=== PATIENT | female | born 1975 | race Caucasian/White ===

== ENCOUNTER 2023-09-09 15:21 | Inpatient (IN) | payer BC, SELFPAY ==
[2023-09-09 15:30] VITALS: BP 163/98; PULSE 108; RESP 18; TEMP 37; O2SAT 96; BMI 20.5
--- NOTE | 2023-09-09 15:33 | W.ED.PSYCHS ---
HPI - Psych General: Chief Complaint: Psychiatric Symptoms Stated Complaint: si Time Seen by Provider: 09/09/23 15:26 Source: patient Mode of arrival: ambulatory History of Present Illness: 47-year-old female presents to the emergency room stressed out tearful and anxious. The stated complaint from the advertising space clerk is suicidal ideation but she never expressed any suicidal ideation plans or thoughts to myself or any of the other medical staff. She is very tearful she cannot focus and basically just cannot function at all anymore is progressively been getting worse the last several days. Several months ago her and her begin a separation or proceeding towards divorce she is having difficult time managing with that she is not previously admitted for psychiatric illness. On initially talked to her she denied any medications but the doctor of pharmacy found that she has been prescribed bupropion fluoxetine and trazodone. She is awake and alert she denies trying to harm herself or any suicidal ideation or plans MD complaint: suicidal ideation and feels depressed Onset (ago): week(s) Duration: constant Relieving factors: none Exacerbating factors: none Associated psychiatric symptoms: depression Associated symptoms: Deny auditory hallucinations, visual hallucinations, delusions, homicidal ideation or suicidal ideation Review of Systems Const: Denies: fever(s) or chills Card: Denies: chest pain Resp: Denies: dyspnea GI: Denies: abdominal pain : Denies: dysuria, urinary frequency or urinary urgency Musc: Denies: neck pain or back pain Skin/Breast: Denies: rash Psych: Denies: visual hallucinations, auditory hallucinations, suicidal ideation or homicidal ideation Physical Exam Const: COMMON NORMALS: no acute distress GENERAL APPEARANCE: cooperative and comfortable ORIENTATION/CONSCIOUSNESS: Yes awake, Yes oriented to person, Yes oriented to place and Yes oriented to time HENMT: COMMON NORMALS: normocephalic, atraumatic and hearing grossly normal bilaterally HEAD & SCALP: normocephalic and atraumatic Resp: COMMON NORMALS: normal respiratory effort, No retractions, No use of accessory muscles and clear to auscultation bilaterally AUSCULTATION: clear to auscultation bilaterally Cardio: COMMON NORMALS: regular rate, regular rhythm and No murmurs present (Cardio) RATE: regular rate RHYTHM: regular rhythm GI: COMMON NORMALS: Soft to palpation and No hepatosplenomegaly present AUSCULTATION: Yes normoactive bowel sounds PALPATION: Yes Soft to palpation, No Tenderness to palpation present (GI), No Guarding due to palpation present (GI) and Yes No hepatosplenomegaly present Extremity: COMMON NORMALS: normal to inspection, capillary refill normal, no clubbing, cyanosis or edema, no calf tenderness and no pedal edema Neuro: SENSORIUM/ORIENTATION: Yes oriented to person, Yes oriented to place and Yes oriented to time Psych: THOUGHT CONTENT: No delusions Skin: COMMON NORMALS: no rashes or lesions noted GENERAL SKIN EXAM: no rashes or lesions noted Course Vital Signs: Vital signs: Vital Signs Temperature 98.6 F 09/09/23 15:30 Pulse Rate 108 H 09/09/23 15:30 Respiratory Rate 18 09/09/23 15:30 Blood Pressure 163/98 09/09/23 15:30 Pulse Oximetry 96 09/09/23 15:30 Oxygen Delivery Me thod Room Air 09/09/23 15:30 MDM - Psych Medical Decision Making Discussed with Dr. Mak. I think the patient would benefit she is essentially nonfunctional because of her anxiety and adjustment disorder. Dr. Mak concurs will admit orders written Medical Records I reviewed the patient's medical records. Lab Data I reviewed the patient's lab results. 09/09/23 15:46 09/09/23 15:46 Laboratory Results WBC 13.58 10^3/uL (3.29-11.43) H 09/09/23 15:46 RBC 4.70 10^6/uL (3.85-5.65) 09/09/23 15:46 Hgb 14.90 g/dL (11.27-16.99) 09/09/23 15:46 Hct 44.5 % (36-47) 09/09/23 15:46 MCV 94.7 fl (85-98) 09/09/23 15:46 MCH 31.7 pg (27-33) 09/09/23 15:46 MCHC 33.5 g/dL (30-55) 09/09/23 15:46 RDW 12.6 % (12.1-15.1) 09/09/23 15:46 Plt Count 426 10^3/cmm (157-399) H 09/09/23 15:46 MPV 8.7 fL (7.4-10.4) 09/09/23 15:46 Neut % (Auto) 68.6 % 09/09/23 15:46 Lymph % (Auto) 22.2 % 09/09/23 15:46 Clay % (Auto) 6.3 % 09/09/23 15:46 Eos % (Auto) 1.8 % 09/09/23 15:46 Baso % (Auto) 0.9 % 09/09/23 15:46 Neut # (Auto) 9.31 10^3/uL (1.8-7.7) H 09/09/23 15:46 Lymph # (Auto) 3.0 10^3/uL (0.8-4.8) 09/09/23 15:46 Clay # (Auto) 0.9 10^3/uL (0.2-0.9) 09/09/23 15:46 Eos # (Auto) 0.2 10^3/uL (0.0-0.8) 09/09/23 15:46 Baso # (Auto) 0.1 10^3/uL (0.0-0.1) 09/09/23 15:46 Nucleated RBC % (auto) 0 % 09/09/23 15:46 Nucleated RBCs # 0.0 /100WBC 09/09/23 15:46 No radiology studies performed this visit Discharge Plan Discharge Patient Disposition: Admitted As Inpatient Clinical Impression: Adjustment disorder with anxiety Condition: Stable Prescriptions: No Action bupropion HCl 150 mg tablet sustained-release 12 hr 150 mg PO QAM trazodone 50 mg tablet 50 mg PO BEDTIME fluoxetine 10 mg capsule 10 mg PO QAM Referrals: Brian Deleon MD [Family Provider] - Patient Instructions: Opioid Safety, Pain Management Coding Level of Care Code ED Golf Player Assistant for Nazia Goddard
[2023-09-09 16:03] LABS: Basophils # 0.1 10^3/uL (0.0-0.1); Basophils % 0.9 %; Eosinophils # 0.2 10^3/uL (0.0-0.8); Eosinophils % 1.8 %; Hematocrit 44.5 % (36-47); Lymphocytes % 22.2 %; Mean Corpuscular HGB Conc 33.5 g/dL (30-55); Mean Corpuscular Hemoglobin 31.7 pg (27-33); Mean Corpuscular Volume 94.7 fl (85-98); Mean Platelet Volume 8.7 fL (7.4-10.4); Monocytes # 0.9 10^3/uL (0.2-0.9); Monocytes % 6.3 %; Neutrophils # 9.31 10^3/uL (1.8-7.7); Neutrophils % 68.6 %; Nucleated Red Blood Cells % 0 %; Platelet Count 426 10^3/cmm (157-399); Red Cell Distribution Width 12.6 % (12.1-15.1); White Blood Count 13.58 10^3/uL (3.29-11.43)
[2023-09-09 16:15] LABS: HCG, Serum Qual Negative (Negative)
[2023-09-09 16:16] LABS: Alanine Aminotransferase 14 U/L (0-33); Albumin Level 4.6 g/dL (3.5-5.2); Alkaline Phosphatase 98 U/L (35-105); Anion Gap 12.8 (5-19); Aspartate Amino Transferase 14 U/L (0-32); Blood Urea Nitrogen 10 mg/dL (6-20); Calcium 9.7 mg/dL (8.5-10.5); Carbon Dioxide 29 mmol/L (22-29); Chloride 103 mmol/L (98-107); Globulin 2.5 g/dL (1.3-4.6); Glomerular Filtration Rate 90.1 mL/min (90-130); Glucose 86 mg/dL (65-115); Osmolality Calculated 290 mOsm/kg (285-295); Potassium 3.8 mmol/L (3.5-5.1); Salicylate 0.9 mg/dL (3-10); Sodium 141 mmol/L (136-145); Total Bilirubin 0.2 mg/dL (0.15-1.2); Total Protein 7.1 g/dL (6.6-8.7)
[2023-09-09 16:17] LABS: Acetaminophen < 5.0 ug/mL (10-30)
[2023-09-09 17:20] VITALS: PULSE 96; O2SAT 99
[2023-09-09] MEDS: nicotine 2 mg Gum BUCCAL (19:00)
[2023-09-09 19:48] LABS: Add Urine Microscopic? NO; Charge for UA Resulting for Rev
[2023-09-09 19:56] LABS: Bilirubin Urine Neg (Negative); Blood Urine Neg (Negative); Glucose Urine UA Norm (Normal); Ketones Urine Negative (Negative); Leukocyte Esterase Urine Negative (Negative); Nitrate Urine Negative (Negative); Protein Urine Neg (Negative); Specific Gravity, Urine 1.005 (1.005-1.030); Urine Appearance Clear (CLEAR); Urine Color Light yellow (Yellow); Urobilinogen Urine Norm (Negative); pH Urine 7 (5-7)
[2023-09-09 20:09] VITALS: BP 162/89; PULSE 90; RESP 18; TEMP 36.8; O2SAT 98
[2023-09-09] MEDS: hyDROXYzine 25 mg Capsule 50 MG PO (22:55)
[2023-09-09 23:44] LABS: Amphetamines Screen Urine Negative (Negative); Barbiturates Screen Urine Negative (Negative); Benzodiazepines Screen Urine Negative (Negative); Cocaine Screen Urine Negative (Negative); Opiate Screen Urine Negative (Negative); PCP Screen Urine Negative (Negative); THC Screen Urine Negative (Negative)
[2023-09-10 06:00] VITALS: BP 135/76; PULSE 79; RESP 16; TEMP 36.9; O2SAT 97
[2023-09-10 13:59] VITALS: BP 137/83; PULSE 84; RESP 18; TEMP 36.6; O2SAT 98
--- NOTE | 2023-09-10 14:05 | W.PM.NPUH&PS ---
Providers/Chief Complaint Admitting Physician: Rex Mak MD Chief Complaint: si HPI NPU History of Present Illness Bri Alejandro is a 47 year old female who presented to the emergency department with the following report: Chief Complaint: Psychiatric Symptoms Stated Complaint: si Time Seen by Provider: 09/09/23 15:26 Source: patient Mode of arrival: ambulatory History of Present Illness: 47-year-old female presents to the emergency room stressed out tearful and anxious. The stated complaint from the cash application clerk is suicidal ideation but she never expressed any suicidal ideation plans or thoughts to myself or any of the other medical staff. She is very tearful she cannot focus and basically just cannot function at all anymore is progressively been getting worse the last several days. Several months ago her and her begin a separation or proceeding towards divorce she is having difficult time managing with that she is not previously admitted for psychiatric illness. On initially talked to her she denied any medications but the certified cytotechnologist found that she has been prescribed bupropion fluoxetine and trazodone. She is awake and alert she denies trying to harm herself or any suicidal ideation or plans complaint: suicidal ideation and feels depressed Onset (ago): week(s) Duration: constant Relieving factors: none Exacerbating factors: none Associated psychiatric symptoms: depression Associated symptoms: Deny auditory hallucinations, visual hallucinations, delusions, homicidal ideation or suicidal ideation The patient was admitted to the neuropsychiatric unit for definitive treatment of those issues. The patient presents today reporting that she is taking some psychiatric medication that she can?t recall the names of. She reports that she is taking something for anxiety and has three different prescriptions but is not taking all of them. The patient reports that she is here secondary to going through a divorce and being overwhelmed by everything. She denies previous psychiatric hospitalizations, saying she doesn?t think she needs to be here, just came in for medication. Explained to her that this is not how it works, that there is a process. She denies any outpatient services or therapy. She doesn?t remember any past treatment. She endorses smoking ten cigarettes or less a day. She denies alcohol use anymore, stating it was probably a problem in the past but was very vague. She denies marijuana, cocaine, methamphetamine, mushrooms, LSD, or any other illicit drug use. She denies drug rehabilitation, DUI, or other drug related charges. The patient reports that she first had some challenges as a teenager, finding social things overwhelming. She reports that she has been for thirteen years and they were together since 2007. She reports that things have been challenging for a long time, reporting he has not been there as a or for the kids for a long time, and was working all the time. She reports that they have two children, an 11-year-old daughter and 13-year-old son. The children are staying with the father right now. She reports that her packed a bag and told her to get out, and she and the kids left, in December. The patient endorses problems sleeping, she has a sleeping pill. She reports that she has lost a lot of weight, from 160 pounds to 110 pounds, since December, but insists that she has not been eating much less. She reports that she thinks she has been going through menopause for the past few years; she has not had a period for several months. She denies suicidal thoughts. She endorses lack of enjoyment. We discussed the risks, benefits, and alternatives of being here, of possible medication changes, and outpatient services, and she understood and agreed to proceed as is documented in this note. PSYCHIATRIC HISTORY: As above. SUBSTANCE ABUSE HISTORY: As above.? FAMILY HISTORY: The patient denies mental health or addiction issues in her family. She denies suicide attempts or completions. DEVELOPMENTAL HISTORY: The patient denies any issues with her mother?s or delivery of her. The patient reports learning to walk and talk and meeting developmental milestones on time. The patient denies speech therapy, learning support, emotional support, or special education classes. PSYCHOSOCIAL HISTORY: The patient reports that her mother and father were together at her and split up when she was little. She thinks they got remarried when she was a teenager. She reports that she has a younger sister who is also from that union. She denies any other siblings. She describes her childhood as good. She denies neglect, or emotional, physical, or sexual abuse. She denies CPS involvement. She endorses traumatic events in her life but said she didn?t know how to talk about it. She reports that she lost her mom five years ago. She denies nightmares or flashbacks. She reports that she did not graduate from high school, she went to her senior year but was missing some credits that prevented graduation; she got her GED. She reports that she went to college. 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 She endorses being heterosexual, with her longest relationship being 15 years. She has been once and is going through a divorce. She has an 11-year-old daughter and 13-year-old son. She has not been in the . She endorses a belief in God. She reports that her longest job was as a [id number] mom for 13 years. She reports that she homeschooled her children in the past and they are now in public school. She reports that she currently lives in a house with her grandmother, and her two kids were initially there when the separation started, but decided they wanted to go stay with their dad, in the house that they have lived in for five years. Her daughter went in May and has not stayed with her since then, and her son went last week. LEGAL HISTORY: Denied. MEDICAL HISTORY: The patient endorses allergy to sulfa drugs. The patient reports that she has had endometriosis and has had cysts removed from her ovaries. She reports that her deliveries were by . She reports that she has had very painful periods and emotional challenges. She has had back surgery and tonsillectomy. Meds NPU Home Medications Medication Instructions Recorded Confirmed Last Taken Type bupropion HCl 150 mg tablet,12 hr 150 mg PO QAM 09/09/23 09/09/23 09/09/23 History sustained-release fluoxetine 10 mg capsule 10 mg PO QAM 09/09/23 09/09/23 Unknown History trazodone 50 mg tablet 50 mg PO BEDTIME 09/09/23 09/09/23 09/08/23 History Allergies Allergy/AdvReac Type Severity Reaction Status Date / Time Sulfa (Sulfonamide Allergy ALGY-Hives Verified 09/09/23 15:59 Antibiotics) Mental Status Exam MSE Comments: This is a slender, diminutive, white female, in hospital scrubs, with adequate grooming and eye contact. No abnormal movements, except for significant psychomotor retardation. Cooperative with exam in mild to moderate distress. Speech was decreased rate and volume, with some pauses. Possible thought blocking. Mood described as very sad; affect congruent. Thought process, organized. Thought content: patient denied any suicidal or homicidal ideation, there were no delusions reported or noted, patient denied any auditory or visual hallucinations. Attention, concentration, and memory appeared intact, but none were formally tested. Alert and oriented times three. Insight and judgment are limited. Impulse control is fair. Vitals/I&O/Wt Last Vital Signs Temp 98 F 09/10/23 13:59 Pulse 84 09/10/23 13:59 Resp 18 09/10/23 13:59 BP 137/83 09/10/23 13:59 Pulse Ox 98 09/10/23 13:59 O2 Del Method Room Air 09/10/23 06:00 Weight last 48 hrs Weight 50.802 kg Data NPU 09/09/23 15:46 09/09/23 15:46 A&P Assessment and plan (1) Adjustment disorder with anxiety: (2) Bereavement: (3) Parent-child relational problem: (4) Partner relational problem: (5) Adjustment disorder with mixed disturbance of emotions and conduct: (6) PTSD (post-traumatic stress disorder): Plan This is a 47-year-old, white female, with a limited history of mental health issues or treatment, who presents reporting significant distress and anxiety related to going through a divorce and feeling overwhelmed with the many changes and challenges associated with that, with a recent weight loss of 50 pounds, with significant psychomotor retardation and significant pauses in her speech with possible thought blocking. 1.? Evaluate medications and make recommendations. 2.? Arrange outpatient services. 3.? Advised patient about the Crisis Center for future reference. 4. Encourage individual, group and milieu therapy. 5. Continue every 15 minute checks for safety. Involuntary Hold Information 96 Hour Hold: 96 Hour Involuntary Admission: No Attestations NPU Medical Necessity Statement*: Inpatient psychiatric hospitalization is medically necessary and the clinically appropriate intervention at this time. We will monitor medications and make changes as indicated. She will be in the hospital for over 2 midnights. Likely length of stay 3 to 5 days. Of note though patient is very resistant to staying in the hospital and desiring to discharge but has ambivalence. We will allow her to leave AGAINST MEDICAL ADVICE if she decides she cannot stay. Coding Level of Care Code Acute Code for Chg Fwd Diagnoses Adjustment disorder with anxiety F43.22 Bereavement Z63.4 Parent-child relational problem Z62.820 Partner relational problem Z63.0 Adjustment disorder with mixed disturbance of emotions and conduct F43.25 PTSD (post-traumatic stress disorder) F43.10
[2023-09-10] MEDS: trazodone 50 mg Tablet PO (20:18)
[2023-09-10 20:40] VITALS: BP 153/81; PULSE 85; RESP 17; TEMP 36.7; O2SAT 96
[2023-09-11 06:00] VITALS: BP 98/59; PULSE 75; RESP 16; O2SAT 95
--- NOTE | 2023-09-11 08:26 | W.PM.NPUPNS ---
Subjective NPU Subjective: Patient presented today reporting that she is doing okay. We discussed the fact that we are happy that she stayed in feel strongly that this is a critical choice in her wellness. She denied feeling dizzy from the Wellbutrin which she had worried about. She denied any specific side effects of the medications and even notably smiled at 1 point which was absent from her repertoire on her first assessment. We discussed continuing to monitor for improvement. Mental Status Exam MSE Comments: This is a slender, diminutive, white female, in hospital scrubs, with adequate grooming and eye contact. No abnormal movements, except for significant psychomotor retardation. Cooperative with exam in mild distress. Speech was decreased rate and volume, with some pauses. Possible thought blocking. Mood described as okay I guess; affect congruent. Thought process, organized. Thought content: patient denied any suicidal or homicidal ideation, there were no delusions reported or noted, patient denied any auditory or visual hallucinations. Attention, concentration, and memory appeared intact, but none were formally tested. Alert and oriented times three. Insight and judgment are limited. Impulse control is fair. Vitals/I&O/Wt Last Vital Signs Temp 98.1 F 09/10/23 20:40 Pulse 75 09/11/23 06:00 Resp 16 09/11/23 06:00 BP 98/59 09/11/23 06:00 Pulse Ox 95 09/11/23 06:00 O2 Del Method Room Air 09/11/23 06:00 Weight last 48 hrs Weight 50.802 kg Data NPU 09/09/23 15:46 09/09/23 15:46 A&P Assessment and plan (1) Adjustment disorder with anxiety: (2) Bereavement: (3) Parent-child relational problem: (4) Partner relational problem: (5) Adjustment disorder with mixed disturbance of emotions and conduct: (6) PTSD (post-traumatic stress disorder): Plan This is a 47-year-old, white female, with a limited history of mental health issues or treatment, who presents reporting significant distress and anxiety related to going through a divorce and feeling overwhelmed with the many changes and challenges associated with that, with a recent weight loss of 50 pounds, with significant psychomotor retardation and significant pauses in her speech with possible thought blocking. 1.? Started Wellbutrin XL 150 mg p.o. daily. 2.? Arrange outpatient services. 3.? Advised patient about the Crisis Center for future reference. 4. Encourage individual, group and milieu therapy. 5. Continue every 15 minute checks for safety. Involuntary Hold Information 96 Hour Hold: 96 Hour Involuntary Admission: No Attestations NPU Medical Necessity Statement*: Inpatient psychiatric hospitalization is medically necessary and the clinically appropriate intervention at this time. We will monitor medications and make changes as indicated. Likely length of stay 2-4 days. Coding Level of Care Code Acute Code for Chg Fwd Diagnoses Adjustment disorder with anxiety F43.22 Bereavement Z63.4 Parent-child relational problem Z62.820 Partner relational problem Z63.0 Adjustment disorder with mixed disturbance of emotions and conduct F43.25 PTSD (post-traumatic stress disorder) F43.10
[2023-09-11] MEDS: buPROPion XL (24 HR) 150 mg Tablet PO (08:52)
[2023-09-11] MEDS: hyDROXYzine 25 mg Capsule 50 MG PO (12:49)
[2023-09-11] MEDS: nicotine 2 mg Gum BUCCAL (13:37)
[2023-09-11 14:00] VITALS: BP 156/73; PULSE 99; RESP 16; TEMP 36.6; O2SAT 97
[2023-09-11 20:01] VITALS: BP 128/74; PULSE 83; RESP 18; TEMP 36.6; O2SAT 100
[2023-09-11] MEDS: trazodone 50 mg Tablet PO (20:25)
[2023-09-12 06:00] VITALS: BP 107/63; PULSE 78; RESP 17; TEMP 37.1; O2SAT 98
--- NOTE | 2023-09-12 08:19 | PC.NURSE ---
During morning assessment patient stated that she is oaky and that she is ready to leave . Patient stated that she feels uncomfortable here, that she is used to using her own bathroom and shower. patient stated that she is missing family. She also stated that she feels like, because she is here, she isn't getting things done. Patient reports anxiety and depression at 3-03/08
[2023-09-12] MEDS: buPROPion XL (24 HR) 150 mg Tablet PO (08:48)
--- NOTE | 2023-09-12 12:42 | W.PM.NPUPNS ---
Subjective NPU Subjective: Patient presented today reporting that she is feeling better. Staff reports of less isolation and this is also notable on direct examination. She reports that she is desirous to leave soon and we discussed monitoring her over the next 24 hours with a likely plan for discharge in the morning. Social work team will return tomorrow and ensure appropriate aftercare appointments. The angst and hesitancy in her continence has been resolving per staff and direct observation. Mental Status Exam MSE Comments: This is a slender, diminutive, white female, in hospital scrubs, with appropriate grooming and eye contact. No abnormal movements, except for mild psychomotor retardation. Cooperative with exam in mild distress. Speech was more normal rate and volume. No notable thought blocking. Mood described as better; affect congruent. Thought process, organized. Thought content: patient denied any suicidal or homicidal ideation, there were no delusions reported or noted, patient denied any auditory or visual hallucinations. Attention, concentration, and memory appeared intact, but none were formally tested. Alert and oriented times three. Insight and judgment are improving. Impulse control is fair. Vitals/I&O/Wt Last Vital Signs Temp 98.7 F 09/12/23 06:00 Pulse 78 09/12/23 06:00 Resp 17 09/12/23 06:00 BP 107/63 09/12/23 06:00 Pulse Ox 98 09/12/23 06:00 O2 Del Method Room Air 09/12/23 06:00 Weight last 48 hrs Weight 51.823 kg Weight 51.71 kg Data NPU 09/09/23 15:46 09/09/23 15:46 A&P Assessment and plan (1) Adjustment disorder with anxiety: (2) Bereavement: (3) Parent-child relational problem: (4) Partner relational problem: (5) Adjustment disorder with mixed disturbance of emotions and conduct: (6) PTSD (post-traumatic stress disorder): Plan This is a 47-year-old, white female, with a limited history of mental health issues or treatment, who presents reporting significant distress and anxiety related to going through a divorce and feeling overwhelmed with the many changes and challenges associated with that, with a recent weight loss of 50 pounds, with significant psychomotor retardation and significant pauses in her speech with possible thought blocking. 1.? Started Wellbutrin XL 150 mg p.o. daily. 2.? Arrange outpatient services. 3.? Advised patient about the Crisis Center for future reference. 4. Encourage individual, group and milieu therapy. 5. Continue every 15 minute checks for safety. Involuntary Hold Information 96 Hour Hold: 96 Hour Involuntary Admission: No Attestations NPU Medical Necessity Statement*: Inpatient psychiatric hospitalization is medically necessary and the clinically appropriate intervention at this time. We will monitor medications and make changes as indicated. Likely length of stay 1-3 days. Coding Level of Care Code Acute Code for Chg Fwd Diagnoses Adjustment disorder with anxiety F43.22 Bereavement Z63.4 Parent-child relational problem Z62.820 Partner relational problem Z63.0 Adjustment disorder with mixed disturbance of emotions and conduct F43.25 PTSD (post-traumatic stress disorder) F43.10
[2023-09-12 14:00] VITALS: BP 135/74; PULSE 68; RESP 16; TEMP 36.6; O2SAT 98
[2023-09-12 19:41] VITALS: BP 114/70; PULSE 75; RESP 17; O2SAT 99
[2023-09-12] MEDS: trazodone 50 mg Tablet PO (20:24)
[2023-09-12] MEDS: docusate sodium 100 mg Capsule PO (21:24)
[2023-09-13 06:00] VITALS: BP 97/57; PULSE 72; RESP 16; O2SAT 95
--- NOTE | 2023-09-13 06:52 | W.PM.NPUDCS ---
Diagnoses at Discharge Discharge Diagnosis (1) Adjustment disorder with anxiety: Status: Inactive (2) Bereavement: Status: Acute (3) Parent-child relational problem: Status: Acute (4) Partner relational problem: Status: Acute (5) Adjustment disorder with mixed disturbance of emotions and conduct: Status: Acute (6) PTSD (post-traumatic stress disorder): Status: Acute Reason for Visit Reason for Visit: si Brief History: History of Present Illness Bri Alejandro is a 47 year old female who presented to the emergency department with the following report: Chief Complaint: Psychiatric Symptoms Stated Complaint: si Time Seen by Provider: 09/09/23 15:26 Source: patient Mode of arrival: ambulatory History of Present Illness: ? 47-year-old female presents to the emergency room stressed out tearful and anxious.? The stated complaint from the freight rate clerk is suicidal ideation but she never expressed any suicidal ideation plans or thoughts to myself or any of the other medical staff.? She is very tearful she cannot focus and basically just cannot function at all anymore is progressively been getting worse the last several days.? Several months ago her and her begin a separation or proceeding towards divorce she is having difficult time managing with that she is not previously admitted for psychiatric illness.? On initially talked to her she denied any medications but the pharmacy benefits coordinator found that she has been prescribed bupropion fluoxetine and trazodone.? She is awake and alert she denies trying to harm herself or any suicidal ideation or plans ? MD complaint: suicidal ideation and feels depressed Onset (ago): week(s) Duration: constant Relieving factors: none Exacerbating factors: none Associated psychiatric symptoms: depression Associated symptoms: Deny auditory hallucinations, visual hallucinations, delusions, homicidal ideation or suicidal ideation The patient was admitted to the neuropsychiatric unit for definitive treatment of those issues. The patient presents today reporting that she is taking some psychiatric medication that she can?t recall the names of. She reports that she is taking something for anxiety and has three different prescriptions but is not taking all of them. The patient reports that she is here secondary to going through a divorce and being overwhelmed by everything. She denies previous psychiatric hospitalizations, saying she doesn?t think she needs to be here, just came in for medication. Explained to her that this is not how it works, that there is a process. She denies any outpatient services or therapy. She doesn?t remember any past treatment. She endorses smoking ten cigarettes or less a day. She denies alcohol use anymore, stating it was probably a problem in the past but was very vague. She denies marijuana, cocaine, methamphetamine, mushrooms, LSD, or any other illicit drug use. She denies drug rehabilitation, DUI, or other drug related charges. The patient reports that she first had some challenges as a teenager, finding social things overwhelming. She reports that she has been for thirteen years and they were together since 2007. She reports that things have been challenging for a long time, reporting he has not been there as a or for the kids for a long time, and was working all the time. She reports that they have two children, an 11-year-old daughter and 13-year-old son. The children are staying with the father right now. She reports that her packed a bag and told her to get out, and she and the kids left, in December. The patient endorses problems sleeping, she has a sleeping pill. She reports that she has lost a lot of weight, from 160 pounds to 110 pounds, since December, but insists that she has not been eating much less. She reports that she thinks she has been going through menopause for the past few years; she has not had a period for several months. She denies suicidal thoughts. She endorses lack of enjoyment. We discussed the risks, benefits, and alternatives of being here, of possible medication changes, and outpatient services, and she understood and agreed to proceed as is documented in this note. PSYCHIATRIC HISTORY: As above. SUBSTANCE ABUSE HISTORY: As above.? FAMILY HISTORY: The patient denies mental health or addiction issues in her family. She denies suicide attempts or completions. DEVELOPMENTAL HISTORY: The patient denies any issues with her mother?s or delivery of her. The patient reports learning to walk and talk and meeting developmental milestones on time. The patient denies speech therapy, learning support, emotional support, or special education classes. PSYCHOSOCIAL HISTORY: The patient reports that her mother and father were together at her and split up when she was little. She thinks they got remarried when she was a teenager. She reports that she has a younger sister who is also from that union. She denies any other siblings. She describes her childhood as good. She denies neglect, or emotional, physical, or sexual abuse. She denies CPS involvement. She endorses traumatic events in her life but said she didn?t know how to talk about it. She reports that she lost her mom five years ago. She denies nightmares or flashbacks. She reports that she did not graduate from high school, she went to her senior year but was missing some credits that prevented graduation; she got her GED. She reports that she went to college. 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 She endorses being heterosexual, with her longest relationship being 15 years. She has been once and is going through a divorce. She has an 11-year-old daughter and 13-year-old son. She has not been in the . She endorses a belief in God. 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 She reports that she homeschooled her children in the past and they are now in public school. She reports that she currently lives in a house with her grandmother, and her two kids were initially there when the separation started, but decided they wanted to go stay with their dad, in the house that they have lived in for five years. Her daughter went in May and has not stayed with her since then, and her son went last week. LEGAL HISTORY: Denied. MEDICAL HISTORY: The patient endorses allergy to sulfa drugs. The patient reports that she has had endometriosis and has had cysts removed from her ovaries. She reports that her deliveries were by . She reports that she has had very painful periods and emotional challenges. She has had back surgery and tonsillectomy. Hospital Course Hospital Course She slowly acclimated to the individual, group and milieu therapies provided.? She presented seeming confused and overwhelmed and initially almost signing out AMA. She was struggling with significant psychosocial challenges of divorce and estrangement from her children and moved from her previous residence of 5 years with her family. She eventually agreed to stay and agreed to a trial of Wellbutrin XL 150 mg with a very positive response. She worked with the social work team to get appropriate aftercare and follow-up. She had significant improvement during the stay and she was able to contract for safety outside the hospital prior to discharge.? During the hospitalization, patient had routine laboratory studies which were within normal limits except for few outliers.? Additionally there was a general medical evaluation which was also within normal limits and revealed no new acute processes. Discharge Summary: At the time of discharge, she denied psychosis or lethality.? Mood and anxiety were well managed.? Patient endorsed a plan to avoid all drugs of abuse and follow-up with the aftercare recommendations of the treatment team.? Patient was evaluated and deemed to be absent credible lethality, and had achieved the maximum benefit from an inpatient hospitalization, so was discharged. Involuntary Hold Information 96 Hour Hold: 96 Hour Involuntary Admission: No Mental Status Exam MSE Comments: This is a slender, diminutive, white female, in hospital scrubs, with appropriate grooming and eye contact. No abnormal movements, except for mild psychomotor retardation. Cooperative with exam in mild distress. Speech was more normal rate and volume. No notable thought blocking. Mood described as better; affect congruent. Thought process, organized. Thought content: patient denied any suicidal or homicidal ideation, there were no delusions reported or noted, patient denied any auditory or visual hallucinations. Attention, concentration, and memory appeared intact, but none were formally tested. Alert and oriented times three. Insight and judgment are improving. Impulse control is fair. Discharge Data Studies Completed and Pending: Laboratory Results WBC 13.58 10^3/uL (3. 29-11.43) H 09/09/23 15:46 RBC 4.70 10^6/uL (3.8 5-5.65) 09/09/23 15:46 Hgb 14.90 g/dL (11.27 -16.99) 09/09/23 15:46 Hct 44.5 % (36-47) 09/09/23 15:46 MCV 94.7 fl (85-98) 09/09/23 15:46 MCH 31.7 pg (27-33) 09/09/23 15:46 MCHC 33.5 g/dL (30-55) 09/09/23 15:46 RDW 12.6 % (12.1-15.1 ) 09/09/23 15:46 Plt Count 426 10^3/cmm (157 -399) H 09/09/23 15:46 MPV 8.7 fL (7.4-10.4) 09/09/23 15:46 Neut % (Auto) 68.6 % 09/09/23 15:46 Lymph % (Auto) 22.2 % 09/09/23 15:46 Calhoun % (Auto) 6.3 % 09/09/23 15:46 Eos % (Auto) 1.8 % 09/09/23 15:46 Baso % (Auto) 0.9 % 09/09/23 15:46 Neut # (Auto) 9.31 10^3/uL (1.8 -7.7) H 09/09/23 15:46 Lymph # (Auto) 3.0 10^3/uL (0.8- 4.8) 09/09/23 15:46 Calhoun # (Auto) 0.9 10^3/uL (0.2- 0.9) 09/09/23 15:46 Eos # (Auto) 0.2 10^3/uL (0.0- 0.8) 09/09/23 15:46 Baso # (Auto) 0.1 10^3/uL (0.0- 0.1) 09/09/23 15:46 Nucleated RBC % (a uto) 0 % 09/09/23 15:46 Nucleated RBCs # 0.0 /100WBC 09/09/23 15:46 Sodium 141 mmol/L (136-1 45) 09/09/23 15:46 Potassium 3.8 mmol/L (3.5-5 .1) 09/09/23 15:46 Chloride 103 mmol/L (98-10 7) 09/09/23 15:46 Carbon Dioxide 29 mmol/L (22-29) 09/09/23 15:46 Anion Gap 12.8 (5-19) 09/09/23 15:46 BUN 10 mg/dL (6-20) 09/09/23 15:46 Creatinine 0.7 mg/dL (0.5-0. 9) 09/09/23 15:46 GFR Calculation 90.1 mL/min (90-1 30) 09/09/23 15:46 Glucose 86 mg/dL (65-115) 09/09/23 15:46 Calculated Osmolal ity 290 mOsm/kg (285- 295) 09/09/23 15:46 Calcium 9.7 mg/dL (8.5-10 .5) 09/09/23 15:46 Total Bilirubin 0.2 mg/dL (0.15-1 .2) 09/09/23 15:46 AST 14 U/L (0-32) 09/09/23 15:46 ALT 14 U/L (0-33) 09/09/23 15:46 Alkaline Phosphata se 98 U/L (35-105) 09/09/23 15:46 Total Protein 7.1 g/dL (6.6-8.7 ) 09/09/23 15:46 Albumin 4.6 g/dL (3.5-5.2 ) 09/09/23 15:46 Globulin 2.5 g/dL (1.3-4.6 ) 09/09/23 15:46 HCG, Qual Negative (Negati ve) 09/09/23 15:46 Urine Color Light yellow (Ye llow) 09/09/23 16:27 Urine Appearance Clear (CLEAR) 09/09/23 16:27 Urine pH 7 (5-7) 09/09/23 16:27 Ur Specific Gravit y 1.005 (1.005-1.0 30) 09/09/23 16:27 Urine Protein Neg (Negative) 09/09/23 16:27 Urine Glucose (UA) Norm (Normal) 09/09/23 16:27 Urine Ketones Negative (Negati ve) 09/09/23 16:27 Urine Blood Neg (Negative) 09/09/23 16:27 Urine Nitrate Negative (Negati ve) 09/09/23 16:27 Urine Bilirubin Neg (Negative) 09/09/23 16:27 Urine Urobilinogen Norm mg/dL (Negat bri) 09/09/23 16:27 Ur Leukocyte Carolina ase Negative (Negati ve) 09/09/23 16:27 Salicylates 0.9 mg/dL (3-10) L 09/09/23 15:46 Urine Opiates Scre en Negative ng/mL (N egative) 09/09/23 16:27 Acetaminophen < 5.0 ug/mL (10-3 0) L 09/09/23 15:46 Ur Barbiturates Sc reen Negative ng/mL (N egative) 09/09/23 16:27 Ur Phencyclidine S crn Negative ng/mL (N egative) 09/09/23 16:27 Ur Amphetamines Sc reen Negative ng/mL (N egative) 09/09/23 16:27 U Benzodiazepines Scrn Negative ng/mL (N egative) 09/09/23 16:27 Urine Cocaine Scre en Negative ng/mL (N egative) 09/09/23 16:27 U Marijuana (THC) Screen Negative ng/mL (N egative) 09/09/23 16:27 Vitals: Last Vital Signs Temp 98 F 09/12/23 14:00 Pulse 72 09/13/23 06:00 Resp 16 09/13/23 06:00 BP 97/57 09/13/23 06:00 Pulse Ox 95 09/13/23 06:00 O2 Del Method Room Air 09/13/23 06:00 Discharge Plan Discharge Patient Disposition: Home Condition: Stable Prescriptions: Continued bupropion HCl 150 mg tablet sustained-release 12 hr 150 mg PO QAM 30 Days Qty: 30 1RF trazodone 50 mg tablet 50 mg PO BEDTIME 30 Days Qty: 30 1RF Discontinued fluoxetine 10 mg capsule 10 mg PO QAM Discharge Orders: Discharge Order (Routine); Ordered 09/13/23 Ordered By: Rex Mak Referrals: [facility] [Other] - 09/30/23 10:30 am (Appointment with Margarita Hubbard LCSW) [facility] [Outside] - 09/15/23 1:30 pm (Initial appointment cheduled 1:30 pm on 09/15/23. ) Brian Deleon MD [Family Provider] - Discharge Diet: Regular Discharge Activity: Resume usual activity Patient Instructions: Bupropion (By mouth), Trazodone (By mouth), PTSD (Post Traumatic Stress Disorder) (DC), Suicide Prevention (DC), Opioid Safety, Pain Management Discharge Attestations NPU Time Spent in Discharge Care*: less than 30 min Specific Discharge Activities: Specific discharge activities: educating patient, discussing with cyanide case hardener/social workers/dc planners, documenting/other paperwork and evaluating patient/reviewing data Coding Level of Care Code Acute Chg FW DC note Diagnoses Adjustment disorder with anxiety F43.22 Bereavement Z63.4 Parent-child relational problem Z62.820 Partner relational problem Z63.0 Adjustment disorder with mixed disturbance of emotions and conduct F43.25 PTSD (post-traumatic stress disorder) F43.10
[2023-09-13 07:29] VITALS: BP 97/57; PULSE 72; RESP 16; O2SAT 95
[2023-09-13] MEDS: buPROPion XL (24 HR) 150 mg Tablet PO (08:22)
== END 2023-09-13 11:57 | disposition home or self-care (01) | DRG 882 ==
LOC: ER 16:24 → NP 16:31
PROVIDERS: Admitting Provider Psychiatry & Neurology Psychiatry; Emergency Provider Family Medicine; Family Provider Family Medicine; Visit Provider Psychiatry & Neurology Psychiatry
DX: F43.25 Adjustment disorder with mixed disturbance of emotions and conduct (principal); F43.22 Adjustment disorder with anxiety; Z63.4 Disappearance and death of family member; F43.10 Post-traumatic stress disorder, unspecified; Z63.0 Problems in relationship with spouse or partner; Z62.820 Parent-biological child conflict
CPT/HCPCS: 36415; 80053; 80306; 80307; 81003; 84703; 85025; 97150; 97165; 99285

== ENCOUNTER → 2023-09-22 15:15 | Outpatient (BNVA) | payer BC, SELFPAY | PROVIDERS: Family Provider Family Medicine; Visit Provider Nurse Practitioner Women's Health | DX: Z20.2 Contact with and (suspected) exposure to infections with a predominantly sexual mode of transmission (principal); Z12.39 Encounter for other screening for malignant neoplasm of breast | CPT/HCPCS: 87491; 87591 ==